=== PATIENT | male | born 1975 | race Caucasian/White ===

== ENCOUNTER 2019-08-01 05:39 | Inpatient (IN) | payer MEDICAID ==
[~2019-08-01] VITALS: Ht 175.3 cm; Wt 105.7 kg
[2019-08-01] VITALS (9 sets, daily range): BP systolic 127–160; BP diastolic 87–105
[2019-08-01] MEDS ORDERED: METO50 PO (06:14)
[2019-08-01] MEDS ORDERED: OMEP20 PO (06:14)
[2019-08-01 06:17] LABS: BASOPHILS % (AUTO) 0.8 % (0.0-2.0); EOSINOPHILS % (AUTO) 1.8 % (1.0-6.0); HEMOGLOBIN 15.8 g/dL (13.5-17.5); LYMPHOCYTES # (AUTO) 4.1 K/uL (1.0-4.8); LYMPHOCYTES % (AUTO) 50.1 % (22.0-44.0); MEAN CORPUSCULAR HEMOGLOBIN 30.9 pg (26.0-34.0); MEAN CORPUSCULAR HGB CONC 34.3 G/dL (31.0-37.0); MEAN CORPUSCULAR VOLUME 90 fL (80-100); MONOCYTES # (AUTO) 0.6 K/uL (0.1-1.0); NEUTROPHILS # (AUTO) 3.3 K/uL (1.8-7.7); NEUTROPHILS % (AUTO) 40.3 % (40.0-70.0); PLATELET COUNT (AUTO) 176 K/uL (150-450); RED CELL DISTRIBUTION WIDTH 14.5 % (11.5-14.5)
[2019-08-01 06:33] LABS: ANION GAP 10 mmol/L (8-16); CALCIUM, TOTAL 8.4 mg/dL (8.8-10.5); CARBON DIOXIDE 24 mmol/L (22-29); CHLORIDE 97 mmol/L (98-107); CREATININE 1.05 mg/dL (0.60-1.30); GLOMERULAR FILTR. RATE CALC > 60 mL/min (>60); GLUCOSE,RANDOM 138 mg/dL (70-110); POTASSIUM 3.5 mmol/L (3.5-5.1); SODIUM SERUM 131 mmol/L (136-145); UREA NITROGEN, BLOOD 24 mg/dL (7-18)
[2019-08-01 06:35] LABS: ALANINE AMINOTRANSFERASE 61 U/L (12-78); ALBUMIN 3.3 g/dL (3.4-5.0); ALKALINE PHOSPHATASE 85 U/L (46-116); ASPARTATE AMINOTRANSFERASE 43 U/L (15-37); BILIRUBIN,TOTAL 0.5 mg/dL (0.1-1.0); TOTAL PROTEIN, SERUM 7.7 g/dL (6.4-8.2)
[2019-08-01 07:00] LABS: AMPHET/METH SCREEN,URINE NEGATIVE (NEGATIVE); BARBITURATE SCREEN, URINE NEGATIVE (NEGATIVE); BENZODIAZEPINES SCREEN,URINE POSITIVE (NEGATIVE); CANNABINOID SCREEN,URINE NEGATIVE (NEGATIVE); COCAINE SCREEN,URINE NEGATIVE (NEGATIVE); METHADONE SCREEN, URINE NEGATIVE (NEGATIVE); OPIATE SCREEN,URINE NEGATIVE (NEGATIVE)
[2019-08-01 07:02] LABS: PHENCYCLIDINE SCREEN,URINE NEGATIVE (NEGATIVE)
[2019-08-01] MEDS ORDERED: OLANZapine 5 MG RAPDIS TABLET PO PRN (11:30)
[2019-08-01] MEDS ORDERED: PROMETHAZINE HCL 25 MG TABLET PO PRN (11:30)
[2019-08-01] MEDS ORDERED: GuaiFENesin/D-METHORPHAN [SUGAR-FREE] 200-20MG/10 ML SYRUP UDCUP PO PRN (11:30)
[2019-08-01] MEDS ORDERED: LOPERAMIDE HCL 2 MG CAPSULE PO PRN (11:30)
[2019-08-01] MEDS ORDERED: ACETAMINOPHEN 325 MG TABLET PO PRN ×2 (11:30→20:15)
[2019-08-01] MEDS ORDERED: TUBERCULIN, PURIFIED PROTEIN DERIVATIVE 5 TU/0.1 ML SYRINGE ID ONE (11:30)
[2019-08-01] MEDS ORDERED: HydrOXYzine PAMOATE 50 MG CAPSULE PO PRN (11:30)
[2019-08-01] MEDS ORDERED: CYANOCOBALAMIN 1,000 MCG/ML VIAL IM ONE (11:30)
[2019-08-01] MEDS ORDERED: MAGNESIUM HYDROXIDE SUSPENSION 30 ML UDCUP PO PRN (11:30)
[2019-08-01] MEDS ORDERED: MAG HYDROX/AL HYDROX/SIMETH ES 30 ML SUSPENSION UDCUP PO PRN (11:30)
[2019-08-01] MEDS ORDERED: DIAZEPAM 10 MG TABLET PO PRN (11:30)
[2019-08-01] MEDS: THIAMINE HCL 100 MG TABLET PO SCH (18:20)
[2019-08-01] MEDS: GABAPENTIN 100 MG CAPSULE PO SCH ×2 (18:20→20:23)
[2019-08-01] MEDS: METOPROLOL TARTRATE 50 MG TABLET PO SCH (18:21)
[2019-08-01] MEDS ORDERED: CloNIDine HCL 0.1 MG TABLET PO PRN (20:15)
[2019-08-01] MEDS ORDERED: IBUPROFEN 600 MG TABLET PO PRN (20:15)
[2019-08-01] MEDS: MIRTAZAPINE 15 MG TABLET PO SCH (20:23)
[2019-08-01] MEDS ORDERED: OLANZapine 5 MG RAPDIS TABLET PO SCH (21:00)
[2019-08-02 04:00] VITALS: BP 139/94
[2019-08-02] MEDS ORDERED: DIAZEPAM 10 MG TABLET PO PRN (07:00)
[2019-08-02 07:33] LABS: HEMOGLOBIN A1C 5.7 % (3.8-5.6)
[2019-08-02 08:00] VITALS: BP 165/91
[2019-08-02 08:05] LABS: CHOL/HDL RATIO 3.1 (4.2-7.3); FREE T4 (FREE THYROXINE) 0.85 ng/dL (0.76-1.46); THYROID STIMULATING HORMONE 0.84 uIU/mL (0.36-3.74)
[2019-08-02] MEDS: OMEPRAZOLE 20 MG CAPSULE PO SCH (09:39)
[2019-08-02] MEDS: METOPROLOL TARTRATE 50 MG TABLET PO SCH ×2 (09:39→16:16)
[2019-08-02] MEDS: THIAMINE HCL 100 MG TABLET PO SCH ×2 (09:39→16:17)
[2019-08-02] MEDS: GABAPENTIN 100 MG CAPSULE PO SCH ×3 (09:39→16:16)
[2019-08-02] MEDS: MULTIVITAMINS WITH MINERALS, THERAPEUTIC TABLET PO SCH (09:39)
[2019-08-02] MEDS: NALTREXONE HCL 50 MG TABLET PO SCH (09:39)
[2019-08-02] MEDS: DIAZEPAM 10 MG TABLET PO SCH ×4 (09:39→20:43)
[2019-08-02] MEDS: FOLIC ACID 1 MG TABLET PO SCH (09:40)
[2019-08-02 10:30] VITALS: BP 165/91
[2019-08-02 12:35] VITALS: BP 115/88
[2019-08-02] MEDS: PROPRANOLOL HCL 10 MG TABLET PO SCH (17:26)
[2019-08-02] MEDS: GABAPENTIN 300 MG CAPSULE PO SCH ×2 (17:26→20:42)
[2019-08-02] MEDS: MIRTAZAPINE 15 MG TABLET PO SCH (20:43)
[2019-08-02 21:39] VITALS: BP 131/77
[2019-08-03] MEDS: ZOLPIDEM TARTRATE 10 MG TABLET PO PRN ×2 (02:26→22:57)
[2019-08-03 02:29] VITALS: BP 153/107
[2019-08-03 08:27] VITALS: BP_SYST 146; BP_SYST 155; BP_DIAS 109; BP_DIAS 87
[2019-08-03] MEDS: MULTIVITAMINS WITH MINERALS, THERAPEUTIC TABLET PO SCH (08:43)
[2019-08-03] MEDS: OMEPRAZOLE 20 MG CAPSULE PO SCH (08:43)
[2019-08-03] MEDS: METOPROLOL TARTRATE 50 MG TABLET PO SCH ×2 (08:43→16:21)
[2019-08-03] MEDS: THIAMINE HCL 100 MG TABLET PO SCH ×2 (08:43→16:22)
[2019-08-03] MEDS: NALTREXONE HCL 50 MG TABLET PO SCH (08:44)
[2019-08-03] MEDS: GABAPENTIN 300 MG CAPSULE PO SCH ×2 (08:44→13:02)
[2019-08-03] MEDS: DIAZEPAM 10 MG TABLET PO SCH ×4 (08:44→20:16)
[2019-08-03] MEDS: FOLIC ACID 1 MG TABLET PO SCH (08:44)
[2019-08-03] MEDS: PROPRANOLOL HCL 10 MG TABLET PO SCH ×3 (08:45→16:19)
[2019-08-03 08:47] VITALS: BP 155/87
[2019-08-03 16:17] VITALS: BP 143/98
[2019-08-03] MEDS: GABAPENTIN 400 MG CAPSULE PO SCH ×2 (16:21→20:16)
[2019-08-03] MEDS: MIRTAZAPINE 15 MG TABLET PO SCH (16:26)
[2019-08-03] MEDS ORDERED: MIRTAZAPINE 15 MG TABLET PO SCH (21:00)
[2019-08-03 23:19] VITALS: BP 145/84
[2019-08-04 06:24] VITALS: BP 139/78
[2019-08-04] MEDS ORDERED: DIAZEPAM 5 MG TABLET PO PRN (07:00)
[2019-08-04] MEDS: OMEPRAZOLE 20 MG CAPSULE PO SCH (08:28)
[2019-08-04] MEDS: FOLIC ACID 1 MG TABLET PO SCH (08:28)
[2019-08-04] MEDS: NALTREXONE HCL 50 MG TABLET PO SCH (08:28)
[2019-08-04] MEDS: GABAPENTIN 400 MG CAPSULE PO SCH ×3 (08:28→17:14)
[2019-08-04] MEDS: METOPROLOL TARTRATE 50 MG TABLET PO SCH ×2 (08:29→17:14)
[2019-08-04] MEDS: DIAZEPAM 5 MG TABLET PO SCH ×3 (08:29→17:14)
[2019-08-04] MEDS: MIRTAZAPINE 15 MG TABLET PO SCH ×3 (08:30→17:15)
[2019-08-04] MEDS: THIAMINE HCL 100 MG TABLET PO SCH ×2 (08:30→17:14)
[2019-08-04] MEDS: MULTIVITAMINS WITH MINERALS, THERAPEUTIC TABLET PO SCH (08:30)
[2019-08-04] MEDS: PROPRANOLOL HCL 10 MG TABLET PO SCH ×3 (08:32→17:12)
[2019-08-04 11:06] VITALS: BP 145/91
[2019-08-04] MEDS ORDERED: LOPERAMIDE HCL 2 MG CAPSULE PO PRN (11:30)
[2019-08-04 13:05] VITALS: BP 130/93
[2019-08-04 17:04] VITALS: BP 140/93
[2019-08-04] MEDS ORDERED: MIRT15TA6 PO ×2 (17:45)
[2019-08-04] MEDS ORDERED: GABA-533 PO (17:45)
[2019-08-04] MEDS ORDERED: NALT50TA PO (17:45)
[2019-08-04] MEDS ORDERED: PROP10TA72 PO (17:45)
[2019-08-04 17:47] VITALS: BP 140/93
[2019-08-04] MEDS ORDERED: METO50 PO (18:37)
[2019-08-04] MEDS ORDERED: PROP10TA73 PO (18:38)
[2019-08-05] MEDS ORDERED: DIAZEPAM 5 MG TABLET PO PRN (07:00)
== END 2019-08-04 19:25 | disposition home or self-care (01) | DRG 881 ==
LOC: EMS 05:39 → 3EI 11:21
PROVIDERS: ADMIT Psychiatry & Neurology Psychiatry; ATTEND Psychiatry & Neurology Psychiatry
DX: F32.9 Major depressive disorder, single episode, unspecified (principal); R45.851 Suicidal ideations; F10.10 Alcohol abuse, uncomplicated; F12.90 Cannabis use, unspecified, uncomplicated; F17.210 Nicotine dependence, cigarettes, uncomplicated; I10 Essential (primary) hypertension; K21.9 Gastro-esophageal reflux disease without esophagitis; Z91.19 Patient's noncompliance with other medical treatment and regimen; Z82.49 Family history of ischemic heart disease and other diseases of the circulatory system; Z81.8 Family history of other mental and behavioral disorders
CPT/HCPCS: 83036; 84439; 84443; 86592; 93005; G0480; J3420